=== PATIENT | female | born 2000 | race Caucasian/White ===

== ENCOUNTER 2023-07-04 21:35 | Emergency (ER) | payer SELFPAY ==
[2023-07-05] MEDS ORDERED: Lidocaine 1% w/Epinephrine 1:100K 20 ML VIAL ONE (00:48)
[2023-07-05 00:53] LABS: Bacteria/HPF 3+ HPF (None Seen); Bilirubin Negative (Negative); Blood, Urine Negative (Negative); CAUTI Indications for Culture Dysuria,urgency,freq; Clarity Clear (Clear); Glucose, Urine (Dipstick) Normal (Negative); Ketone, Urine Negative (Negative); Leukocyte 25 Leu/uL (Negative); Nitrite Negative (Negative); Protein, Urine (Dipstick) Negative (Neg-Trace); RBC/HPF 0-3 HPF (0-3); Specific Gravity, Urine 1.009 (1.002-1.036); Squamous Epithelial 0-3 HPF (0-3); Urobilinogen Normal mg/dL (Less than 2); pH, Urine 5.5 (5.0-9.0)
[2023-07-05 00:56] LABS: Urine Culture Reflex No No
[2023-07-05] MEDS ORDERED: Lidocaine 4% Cream 5 GM TUBE w/ Tegaderm ONE (01:33)
[2023-07-05 02:24] LABS: Pregnancy Test - Urine (BHCG) Negative (Negative); Pregu Control Background? CLEAR/WHITE (CLR/WHITE); Pregu Control Bar Appear? YES (CONTROL BAR)
[2023-07-05 02:26] LABS: Specific Gravity 1.009 (1.002-1.036)
[2023-07-05] MEDS ORDERED: Ondansetron ODT 4 MG TAB ONE (03:47)
[2023-07-05 11:45] LABS: Chlamydia by PCR, Vaginal Swab Not Detected (NotDetected); GC by PCR, Vaginal Swab DETECTED (NotDetected)
== END 2023-07-05 03:52 | disposition home or self-care (01) ==
LOC: ERS 21:35
DX: N76.4 Abscess of vulva (principal); F17.290 Nicotine dependence, other tobacco product, uncomplicated
CPT/HCPCS: 76856; 81001; 81025; 87480; 87491; 87510; 87591; 87660; 93005; 93976; Q0162

== ENCOUNTER 2023-07-06 21:29 | Emergency (ER) | payer SELFPAY ==
[2023-07-06] MEDS ORDERED: Azithromycin 250 MG TAB ONE ×2 (22:03→22:07)
[2023-07-06] MEDS ORDERED: Gentamicin 80 MG/2 ML VIAL ONE (22:31)
[2023-07-07 00:29] LABS: HBCM Index 0.06 S/CO (0-0.79); HBSAg Index 0.18 S/CO (0-0.99); HIV (1/2) Antibody/Antigen Non-Reactive (NonReactive); HIV 1/2 INDEX 0.23 S/CO (<1.00); Hep A IgM AB Non-Reactive S/CO (NonReactive); Hep A IgM S/CO 0.16 S/CO (0-0.79); Hep B Surf Ag Non-Reactive S/CO (NonReactive); Hep C IgG Ab Non-Reactive S/CO (NonReactive); Hep C Index 0.07 S/CO (0-0.79); Hepatitis B Core IgM Abs Non-Reactive S/CO (NonReactive)
== END 2023-07-06 22:57 | disposition home or self-care (01) ==
LOC: ERS 21:29
DX: A54.9 Gonococcal infection, unspecified (principal); F17.290 Nicotine dependence, other tobacco product, uncomplicated
CPT/HCPCS: 36415; 80074; 87389; 96372; 99283; J1580